=== PATIENT | female | born 1970 | race Caucasian/White ===

== ENCOUNTER 2021-02-25 20:05 | Emergency (ER) | payer OTHER, SELFPAY ==
[2021-02-25 20:06] VITALS: BP 110/80; PULSE 80; RESP 21; TEMP 37.3; O2SAT 96; BMI 23.8
[2021-02-25 20:10] VITALS: BP 110/80; PULSE 85; PULSE 86; RESP 15; RESP 17; TEMP 37.3; O2SAT 98; O2SAT 99
[2021-02-25 20:15] VITALS: TEMP 37.3; O2SAT 99
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
--- NOTE | 2021-02-25 20:35 | EKG12_ITS ---
Test Reason : DYSRHYTHMIA Blood Pressure : / mmHG Vent. Rate : 093 BPM Atrial Rate : 093 BPM P-R Int : 154 ms QRS Dur : 084 ms QT Int : 368 ms P-R-T Axes : 066 066 050 degrees QTc Int : 457 ms Normal sinus rhythm Normal ECG Confirmed by MONSERRAT NATH, DENA ([id number]), fashion editor ELIDA BAL ([id number]) on 02/26/2021 1:53:02 PM Referred By: CHANDLER Confirmed By:DENA GERMAN MD
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
[2021-02-25 20:57] LABS: Absolute Lymphocyte Count 1.21 X10^3/uL (0.83-4.51); Absolute Neutrophil Count 2.4 X10^3/uL (2.0-7.7); Basophil# 0.02 X10^3/uL; Basophil% 0.5 % (0-1); Eosinophil# 0.01 X10^3/uL; Eosinophils% 0.2 % (0-5); Hematocrit 42.9 % (37-47); Hemoglobin 14.3 g/dL (12.0-15.0); Lymphocyte # 1.21 X10^3/ul (0.83-4.51); Lymphocyte % 29.4 % (19-41); Mean Corp Hgb Conc 33.3 g/dL (32-36); Mean Corpuscular Volume 92.9 fL (81-99); Mean Platelet Vol. 10.9 fl (6.2-12.0); Monocyte# 0.45 X10^3/uL; Monocyte% 10.9 % (0-10); NRBC Flagged by Analyzer 0 % (0-5); Neutrophil # 2.41 X10^3/uL (2.7-7.7); Neutrophil % 58.8 % (47-70); Platelet Count 199 K/mm3 (150-450); RBC Distribution Width SD 41.4 fl (35.1-43.9); Red Blood Count 4.62 M/mm3 (4.2-5.4); White Blood Count 4.1 K/mm3 (4.4-11.0)
[2021-02-25 20:58] LABS: Anion Gap 7 (5-15); BUN 14 mg/dL (7-18); BUN/Creat Ratio 19.4 RATIO (10-20); Chloride 106 mmol/L (98-107); Creatinine, Serum 0.72 mg/dL (0.55-1.02); EST Glomerular Filtration Rate 90 mL/min (>60); Est Glom Filt Rate - Afr Amer 109 mL/min (>60); Estimated Creatinine Clearance 78.03 ml/min; Glucose 120 mg/dL (74-106); Potassium 3.5 mmol/L (3.5-5.1); Sodium Level 138 mmol/L (136-145); Troponin-I HS 20 pg/mL (3.0-54.0)
[2021-02-25 21:21] LABS: International Normalized Ratio 1.1; Prothrombin Time (Protime)PT. 13.7 SECONDS (11.7-14.9)
[2021-02-25 22:06] VITALS: BP 127/84; PULSE 98; RESP 17
[2021-02-25 22:26] LABS: Bacteria 0 SEEN /hpf (None Seen); Mucous, Urine 0 SEEN /hpf (<or=2+); Red Blood Cells-Urine 0 SEEN /hpf (0-5)
[2021-02-25 22:30] LABS: Color, Urine Yellow (Yellow); Glucose, Dipstick Normal (Normal); Ketone-Dipstick 15 mg/dl (Negative); Leukocyte Esterase-Dipstick 25 /ul (Negative); Nitrite-Dipstick Negative (Negative); Occult Blood-Urine Negative /ul (Negative); Protein-Dipstick Negative (Negative); Specific Gravity, Urine 1.005 (1.002-1.030); Urine Bilirubin Dipstick Negative (Negative); Urine Clarity Sl. Cloudy (Clear); Urine Urobilinogen Normal (Normal)
[2021-02-25 22:37] LABS: Squamous Epithelial Cells - UA 0-5 SEEN /hpf (5-10); White Blood Cells 0-5 SEEN /hpf (0-5)
[2021-02-25 22:41] LABS: Amphetamine Urine VISTA NEGATIVE (<1000 ng/mL); Barbiturate Urine VISTA NEGATIVE (< 200 ng/mL); Benzodiazepine Urine VISTA NEGATIVE (< 200 ng/mL); Cocaine Urine VISTA NEGATIVE (< 300 ng/mL); Ecstacy Urine VISTA NEGATIVE (< 500 ng/mL); Methadone Urine VISTA NEGATIVE (< 300 ng/mL); PCP Urine VISTA NEGATIVE (< 25 ng/mL); THC Urine VISTA NEGATIVE (< 50 ng/mL); Vista UDS pH Range 6
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
[2021-02-25 23:04] VITALS: BP 124/87; PULSE 98; RESP 17; O2SAT 98
== END 2021-02-25 23:04 | disposition home or self-care (01) ==
PROVIDERS: Emergency Provider Student in an Organized Health Care Education/Training Program
DX: S06.0X9A Concussion with loss of consciousness of unspecified duration, initial encounter (principal); U07.1 COVID-19; J12.82 Pneumonia due to coronavirus disease 2019; R55 Syncope and collapse; R07.89 Other chest pain; V48.0XXA Car driver injured in noncollision transport accident in nontraffic accident, initial encounter
CPT/HCPCS: 70450; 71260; 72125; 74177; 80048; 80307; 81001; 82077; 84484; 85025; 85610; 87426; 93005; 99285; Q9967; A4216